=== PATIENT | male | born 1945 | race Caucasian/White ===

== ENCOUNTER 2021-11-01 08:22 | Outpatient (CLI) | payer MEDICARE, BC | END 2021-11-01 08:23 | disposition home or self-care (01) | LOC: SCSRAD 08:22 | PROVIDERS: ATTEND Family Medicine | DX: M53.3 Sacrococcygeal disorders, not elsewhere classified (principal) | CPT/HCPCS: 72220 ==

== ENCOUNTER 2022-06-05 17:17 | Emergency (ER) | payer MEDICARE, BC ==
[~2022-06-05 17:17] MED LIST: Iopamidol-370 76% 500 ML 1 ML ONE
[2022-06-05 17:56] LABS: #Eosinphils 0.5 thou/uL (0.0-0.7); #Lymphocytes 1.4 thou/uL (1.20-3.40); #Monocytes 0.9 thou/uL (0.11-0.59); #Neutrophils 8.1 thou/uL (1.40-6.50); %Basophils 0.3 % (0.0-1.0); %Eosinophils 4.8 % (0.0-10.0); %Lymphocytes 12.9 % (21.0-51.0); %Monocytes 7.9 % (0.0-10.0); Hemoglobin 11.9 g/dL (14.0-18.0); Mean Corpuscular HGB CONC 32.8 g/dL (32.0-36.0); Mean Corpuscular Hemoglobin 31.7 pg (27.0-31.0); Mean Corpuscular Volume 96.6 fL (78.0-98.0); Mean Platelet Volume 10.4 fL (7.4-10.4); Platelet Count 145 thou/uL (130-400); RBC Distribution Width 11.8 % (11.5-14.5); Red Blood Cell (RBC) Count 3.76 mill/uL (4.70-6.10); White Blood Cell (WBC) Count 10.9 thou/uL (4.8-10.8)
[2022-06-05 18:16] LABS: ALT (SGPT) Less than 7 U/L (8-55); AST (SGOT) 19 U/L (5-34); Albumin 3.5 g/dL (3.4-4.8); Alkaline Phosphatase 72 U/L (40-110); Anion Gap 12 mmol/L (10-20); BUN (Urea Nitrogen) 17 mg/dL (8.4-25.7); Bilirubin, Total 0.6 mg/dL (0.2-1.2); Calc. Creatinine Clearance 0 mL/min (70-130); Calcium 9.1 mg/dL (7.8-10.44); Carbon Dioxide 25 mmol/L (23-31); Chloride 105 mmol/L (98-107); Estimated GFR 80; Globulin 2.4 g/dL (2.4-3.5); Glucose 111 mg/dL (83-110); Lipase 45 U/L (8-78); Potassium 3.6 mmol/L (3.5-5.1); Protein, Total 5.9 g/dL (5.8-8.1); Sodium 138 mmol/L (136-145)
[2022-06-05] MEDS ORDERED: Morphine 4 MG/ML VIAL ONE (19:01)
[2022-06-05 21:01] LABS: Troponin I 0.014 ng/mL (< 0.028)
== END 2022-06-05 22:20 ==
LOC: ERS 17:17
DX: M25.512 Pain in left shoulder (principal); I48.91 Unspecified atrial fibrillation; I45.10 Unspecified right bundle-branch block; I11.0 Hypertensive heart disease with heart failure; I50.9 Heart failure, unspecified; E03.9 Hypothyroidism, unspecified; F03.90 Unspecified dementia, unspecified severity, without behavioral disturbance, psychotic disturbance, mood disturbance, and anxiety; G20 Parkinson's disease; W19.XXXA Unspecified fall, initial encounter; Z79.899 Other long term (current) drug therapy
CPT/HCPCS: 36415; 70450; 71045; 71275; 72125; 80053; 83690; 84484; 85025; 93005; 96374; J2270; Q9967

== ENCOUNTER 2022-06-21 09:37 | Emergency (ER) | payer MEDICARE, BC ==
[2022-06-21] MEDS ORDERED: Morphine 4 MG/ML VIAL ONE (10:04)
[2022-06-21 10:10] LABS: #Eosinphils 0.3 thou/uL (0.0-0.7); #Lymphocytes 1.7 thou/uL (1.20-3.40); #Monocytes 1.5 thou/uL (0.11-0.59); %Basophils 0.3 % (0.0-1.0); %Eosinophils 2.9 % (0.0-10.0); %Lymphocytes 14.5 % (21.0-51.0); %Monocytes 12.8 % (0.0-10.0); %Neutrophils 69.6 % (42.0-75.0); Mean Corpuscular HGB CONC 31.8 g/dL (32.0-36.0); Mean Corpuscular Hemoglobin 30.7 pg (27.0-31.0); Mean Corpuscular Volume 96.4 fL (78.0-98.0); Platelet Count 201 thou/uL (130-400); Red Blood Cell (RBC) Count 3.58 mill/uL (4.70-6.10); White Blood Cell (WBC) Count 11.5 thou/uL (4.8-10.8)
[2022-06-21 10:34] LABS: ALT (SGPT) 9 U/L (8-55); AST (SGOT) 17 U/L (5-34); Albumin 3.1 g/dL (3.4-4.8); Alkaline Phosphatase 74 U/L (40-110); Anion Gap 12 mmol/L (10-20); BUN (Urea Nitrogen) 18 mg/dL (8.4-25.7); Bilirubin, Total 0.7 mg/dL (0.2-1.2); Calc. Creatinine Clearance 0 mL/min (70-130); Calcium 8.7 mg/dL (7.8-10.44); Carbon Dioxide 24 mmol/L (23-31); Chloride 104 mmol/L (98-107); Estimated GFR 80; Globulin 2.5 g/dL (2.4-3.5); Glucose 93 mg/dL (83-110); Potassium 3.6 mmol/L (3.5-5.1); Protein, Total 5.6 g/dL (5.8-8.1); Sodium 136 mmol/L (136-145)
== END 2022-06-21 13:09 | disposition home or self-care (01) ==
LOC: ERS 09:37
DX: M25.551 Pain in right hip (principal); I11.0 Hypertensive heart disease with heart failure; I50.9 Heart failure, unspecified; E03.9 Hypothyroidism, unspecified; G20 Parkinson's disease; Z79.899 Other long term (current) drug therapy
CPT/HCPCS: 36415; 70450; 72170; 72192; 80053; 84484; 85025; 96374; J2270

== ENCOUNTER 2022-06-30 22:04 | Inpatient (IN) | payer MEDICARE, BC ==
[2022-06-30 23:12] LABS: Bacteria/HPF 4+ HPF (None Seen); Bilirubin Negative (Negative); Blood, Urine 2+ (Negative); Clarity Extra Turbid (Clear); Glucose, Urine (Dipstick) Normal (Negative); Ketone, Urine Negative (Negative); Leukocyte 500 Leu/uL (Negative); Nitrite 1+ (Negative); Protein, Urine (Dipstick) 100 mg/dL (Neg-Trace); Renal Epithelial 0-3 HPF (None Seen); Specific Gravity, Urine 1.012 (1.002-1.036); Squamous Epithelial 0-3 HPF (0-3); Urobilinogen Normal mg/dL (Less than 2); WBC/HPF Greater than 50 HPF (0-3)
[2022-06-30 23:13] LABS: ALT (SGPT) Less than 7 U/L (8-55); AST (SGOT) 47 U/L (5-34); Alkaline Phosphatase 86 U/L (40-110); Anion Gap 14 mmol/L (10-20); BUN (Urea Nitrogen) 27 mg/dL (8.4-25.7); Bilirubin, Total 0.7 mg/dL (0.2-1.2); CK (CPK) 1153 U/L (30-200); Calc. Creatinine Clearance 0 mL/min (70-130); Calcium 8.4 mg/dL (7.8-10.44); Carbon Dioxide 22 mmol/L (23-31); Chloride 103 mmol/L (98-107); Estimated GFR 43; Globulin 2.7 g/dL (2.4-3.5); Glucose 170 mg/dL (83-110); Hemoglobin 10.6 g/dL (14.0-18.0); Mean Corpuscular HGB CONC 34.5 g/dL (32.0-36.0); Mean Corpuscular Hemoglobin 33.3 pg (27.0-31.0); Mean Corpuscular Volume 96.5 fL (78.0-98.0); Mean Platelet Volume 11.1 fL (7.4-10.4); Platelet Count 134 thou/uL (130-400); Potassium 3.7 mmol/L (3.5-5.1); Protein, Total 5.7 g/dL (5.8-8.1); RBC Distribution Width 12.2 % (11.5-14.5); Sodium 135 mmol/L (136-145); White Blood Cell (WBC) Count 18.7 thou/uL (4.8-10.8)
[2022-06-30 23:24] LABS: Band 16 % (5-11); Lymphocytes 4 % (21-51); MDiff Complete? YES; Monocytes 5 % (0-10); Neutrophil 75 % (42-75)
[2022-06-30 23:36] LABS: CKMB 20.9 ng/mL (0-6.6)
[2022-06-30] MEDS ORDERED: Cefepime 2 GM VIAL ONE (23:53)
[2022-06-30] MEDS ORDERED: Aspirin 300 MG Suppository ONE ×2 (23:53)
[2022-06-30] MEDS ORDERED: Vancomycin 1 GM/200 ML BAG ONE (23:53)
[2022-07-01] MEDS ORDERED: Ondansetron PF 4 MG/2 ML Vial IVP PRN (00:09)
[2022-07-01 00:20] LABS: SARS-CoV-2 NAA Rapid Test DETECTED (NotDetected)
[2022-07-01] MEDS ORDERED: Dexamethasone 10 MG/ML VIAL SLOW IVP SCH (00:45)
[2022-07-01] MEDS ORDERED: Fentanyl 100 MCG/2 ML VIAL ONE (00:45)
[2022-07-01 01:10] LABS: Troponin I 0.035 ng/mL (< 0.028)
[2022-07-01] MEDS: Sodium Chloride 0.9% 1,000 ML IV SCH ×2 (02:22→15:00)
[2022-07-01 02:26] LABS: #Monocytes 0.9 thou/uL (0.11-0.59); #Neutrophils 16.4 thou/uL (1.40-6.50); %Eosinophils 0.1 % (0.0-10.0); %Lymphocytes 5.6 % (21.0-51.0); %Monocytes 4.8 % (0.0-10.0); %Neutrophils 89.5 % (42.0-75.0); Hemoglobin 10.1 g/dL (14.0-18.0); Mean Corpuscular HGB CONC 34.9 g/dL (32.0-36.0); Mean Corpuscular Hemoglobin 33.8 pg (27.0-31.0); Mean Corpuscular Volume 96.8 fL (78.0-98.0); Mean Platelet Volume 10.3 fL (7.4-10.4); Platelet Count 130 thou/uL (130-400); RBC Distribution Width 12.3 % (11.5-14.5); Red Blood Cell (RBC) Count 2.99 mill/uL (4.70-6.10); White Blood Cell (WBC) Count 18.4 thou/uL (4.8-10.8)
[2022-07-01 02:42] LABS: Lactic Acid 0.8 mmol/L (0.5-2.2)
[2022-07-01 02:54] LABS: Anion Gap 15 mmol/L (10-20); BUN (Urea Nitrogen) 28 mg/dL (8.4-25.7); CK (CPK) 950 U/L (30-200); Calc. Creatinine Clearance 0 mL/min (70-130); Calcium 7.7 mg/dL (7.8-10.44); Carbon Dioxide 21 mmol/L (23-31); Chloride 106 mmol/L (98-107); Estimated GFR 47; Glucose 143 mg/dL (83-110); Potassium 3.8 mmol/L (3.5-5.1); Sodium 138 mmol/L (136-145)
[2022-07-01 02:55] LABS: ALT (SGPT) Less than 7 U/L (8-55); AST (SGOT) 45 U/L (5-34); Albumin 2.8 g/dL (3.4-4.8); Alkaline Phosphatase 77 U/L (40-110); Bilirubin, Direct 0.4 mg/dL (0.1-0.3); Bilirubin, Total 0.5 mg/dL (0.2-1.2); Hemoglobin A1c 5.3 % (4.0-6.0); Protein, Total 5.2 g/dL (5.8-8.1)
[2022-07-01 05:18] LABS: Troponin I 0.025 ng/mL (< 0.028)
[2022-07-01] MEDS: Acetaminophen 325 MG TAB PO PRN (06:15)
[2022-07-01] MEDS: Enoxaparin Sodium 40 MG/0.4 ML SYRINGE SC SCH (09:11)
[2022-07-01] MEDS: Dexamethasone 10 MG/ML VIAL SLOW IVP SCH (09:12)
[2022-07-01] MEDS: Zinc Sulfate 220 MG CAP PO SCH (09:12)
[2022-07-01] MEDS: Ascorbic Acid 500 mg Chewable Tablet PO SCH (09:12)
[2022-07-01] MEDS: Cefepime 2 GM in Sodium Chloride 0.9% 100 ML IVPB SCH (11:40)
[2022-07-01] MEDS: Carbidopa/Levodopa [Rytary Er] 61.25 MG/245 MG Capsule.Er PO SCH ×2 (18:09→21:41)
[2022-07-01] MEDS: Atorvastatin Calcium 20 MG TAB PO SCH (21:41)
[2022-07-01] MEDS: traZODone HCl 50 MG TAB PO SCH (21:41)
[2022-07-02] MEDS: Cefepime 2 GM in Sodium Chloride 0.9% 100 ML IVPB SCH ×2 (00:07→12:35)
[2022-07-02] MEDS ORDERED: VANCOMYCIN 1.25 GM/250 ML BAG 1.25 GM in Premix Bag 1 BAG IVPB SCH (01:00)
[2022-07-02] MEDS: Acetaminophen 325 MG TAB PO PRN ×2 (03:41→09:37)
[2022-07-02 04:45] LABS: #Lymphocytes 0.5 thou/uL (1.20-3.40); #Monocytes 0.4 thou/uL (0.11-0.59); #Neutrophils 15.2 thou/uL (1.40-6.50); %Lymphocytes 3.3 % (21.0-51.0); %Monocytes 2.4 % (0.0-10.0); %Neutrophils 94.3 % (42.0-75.0); Hemoglobin 9.5 g/dL (14.0-18.0); Mean Corpuscular HGB CONC 31.5 g/dL (32.0-36.0); Mean Corpuscular Hemoglobin 30.8 pg (27.0-31.0); Mean Corpuscular Volume 97.8 fL (78.0-98.0); Mean Platelet Volume 11.3 fL (7.4-10.4); Platelet Count 124 thou/uL (130-400); RBC Distribution Width 12.1 % (11.5-14.5); Red Blood Cell (RBC) Count 3.08 mill/uL (4.70-6.10); White Blood Cell (WBC) Count 16.1 thou/uL (4.8-10.8)
[2022-07-02 05:02] LABS: Anion Gap 11 mmol/L (10-20); BUN (Urea Nitrogen) 29 mg/dL (8.4-25.7); CK (CPK) 292 U/L (30-200); Calc. Creatinine Clearance 64 mL/min (70-130); Carbon Dioxide 24 mmol/L (23-31); Chloride 107 mmol/L (98-107); Estimated GFR 72; Glucose 135 mg/dL (83-110); Potassium 3.9 mmol/L (3.5-5.1); Sodium 138 mmol/L (136-145)
[2022-07-02] MEDS: Levothyroxine Sodium 25 MCG TAB PO SCH (06:09)
[2022-07-02 09:00] VITALS: BMI 25.1
[2022-07-02] MEDS: Citalopram 20 MG TAB PO SCH (09:40)
[2022-07-02] MEDS: Dexamethasone 10 MG/ML VIAL SLOW IVP SCH (09:40)
[2022-07-02] MEDS: Zinc Sulfate 220 MG CAP PO SCH (09:40)
[2022-07-02] MEDS: Ascorbic Acid 500 mg Chewable Tablet PO SCH (09:40)
[2022-07-02] MEDS: Enoxaparin Sodium 40 MG/0.4 ML SYRINGE SC SCH (09:41)
[2022-07-02] MEDS: Carbidopa/Levodopa [Rytary Er] 61.25 MG/245 MG Capsule.Er PO SCH ×3 (13:04→20:41)
[2022-07-02] MEDS: Sodium Chloride 0.9% 1,000 ML IV SCH (13:24)
[2022-07-02] MEDS ORDERED: Morphine 2 MG/ML VIAL SLOW IVP PRN (15:03)
[2022-07-02] MEDS ORDERED: Ibuprofen 200 MG TAB PO PRN (15:04)
[2022-07-02] MEDS: Atorvastatin Calcium 20 MG TAB PO SCH (20:40)
[2022-07-02] MEDS: traZODone HCl 50 MG TAB PO SCH (20:40)
[2022-07-02] MEDS: Ciprofloxacin 500 MG TAB PO SCH (20:41)
[2022-07-03 04:48] LABS: #Lymphocytes 0.6 thou/uL (1.20-3.40); #Monocytes 0.6 thou/uL (0.11-0.59); #Neutrophils 12.7 thou/uL (1.40-6.50); %Eosinophils 0.1 % (0.0-10.0); %Lymphocytes 4.6 % (21.0-51.0); %Monocytes 4.1 % (0.0-10.0); %Neutrophils 91.1 % (42.0-75.0); Mean Corpuscular HGB CONC 32.6 g/dL (32.0-36.0); Mean Corpuscular Hemoglobin 31.7 pg (27.0-31.0); Mean Corpuscular Volume 97.2 fL (78.0-98.0); Mean Platelet Volume 10.9 fL (7.4-10.4); Platelet Count 151 thou/uL (130-400); RBC Distribution Width 12.2 % (11.5-14.5); Red Blood Cell (RBC) Count 3.14 mill/uL (4.70-6.10); White Blood Cell (WBC) Count 13.9 thou/uL (4.8-10.8)
[2022-07-03 05:04] LABS: Anion Gap 14 mmol/L (10-20); BUN (Urea Nitrogen) 30 mg/dL (8.4-25.7); Calc. Creatinine Clearance 70 mL/min (70-130); Calcium 7.9 mg/dL (7.8-10.44); Carbon Dioxide 21 mmol/L (23-31); Chloride 105 mmol/L (98-107); Estimated GFR 80; Glucose 122 mg/dL (83-110); Sodium 136 mmol/L (136-145)
[2022-07-03] MEDS: Levothyroxine Sodium 25 MCG TAB PO SCH (05:13)
[2022-07-03] MEDS: Ciprofloxacin 500 MG TAB PO SCH (05:13)
[2022-07-03] MEDS: Citalopram 20 MG TAB PO SCH (09:41)
[2022-07-03] MEDS: Carbidopa/Levodopa [Rytary Er] 61.25 MG/245 MG Capsule.Er PO SCH ×2 (09:41→15:07)
[2022-07-03] MEDS: Zinc Sulfate 220 MG CAP PO SCH (09:41)
[2022-07-03] MEDS: Enoxaparin Sodium 40 MG/0.4 ML SYRINGE SC SCH (09:41)
[2022-07-03] MEDS: Ascorbic Acid 500 mg Chewable Tablet PO SCH (09:41)
[2022-07-03 12:20] VITALS: TEMP 98.1
[2022-07-03 17:03] VITALS: BP 177/84
== END 2022-07-03 16:45 | DRG 871 ==
LOC: ERS 22:04 → 2NO 07-01 00:08
PROVIDERS: ADMIT Internal Medicine; ATTEND Internal Medicine
PROC: 3E03329 Introduction of Other Anti-infective into Peripheral Vein, Percutaneous Approach (ICD-10-PCS; principal; 2022-07-01)
PROC: 8E0ZXY6 Isolation (ICD-10-PCS; 2022-07-01)
DX: A41.51 Sepsis due to Escherichia coli [E. coli] (principal); U07.1 COVID-19; J96.01 Acute respiratory failure with hypoxia; G93.41 Metabolic encephalopathy; I50.32 Chronic diastolic (congestive) heart failure; M62.82 Rhabdomyolysis; N17.9 Acute kidney failure, unspecified; I24.8 Other forms of acute ischemic heart disease; N30.00 Acute cystitis without hematuria; F03.91 Unspecified dementia, unspecified severity, with behavioral disturbance; Z66 Do not resuscitate; A41.89 Other specified sepsis; I11.0 Hypertensive heart disease with heart failure; E03.9 Hypothyroidism, unspecified; D64.9 Anemia, unspecified; G20 Parkinson's disease; R29.6 Repeated falls; F32.A Depression, unspecified; E78.2 Mixed hyperlipidemia; F41.9 Anxiety disorder, unspecified; R63.0 Anorexia; Z98.890 Other specified postprocedural states; Z88.1 Allergy status to other antibiotic agents; Z88.5 Allergy status to narcotic agent; Z79.51 Long term (current) use of inhaled steroids; Z79.899 Other long term (current) drug therapy; Z79.890 Hormone replacement therapy; Z68.25 Body mass index [BMI] 25.0-25.9, adult; Z99.3 Dependence on wheelchair
CPT/HCPCS: 36415; 51701; 70450; 71045; 74176; 80048; 80053; 80076; 81003; 81015; 82550; 82553; 83036; 83605; 83880; 84484; 85025; 86140; 87040; 87077; 87086; 87186; 93005; 96374; 96375; J0692; J1100; J1650; J3010; J3370; J3490; J7050

== ENCOUNTER 2022-07-04 10:34 | Emergency (ER) | payer MEDICARE, BC ==
[2022-07-04] MEDS ORDERED: Bacitracin 1 PK ONE (11:29)
[2022-07-04 11:30] LABS: #Eosinphils 0.1 thou/uL (0.0-0.7); #Lymphocytes 0.8 thou/uL (1.20-3.40); #Monocytes 0.9 thou/uL (0.11-0.59); #Neutrophils 9.6 thou/uL (1.40-6.50); %Basophils 0.2 % (0.0-1.0); %Eosinophils 0.7 % (0.0-10.0); %Lymphocytes 7.2 % (21.0-51.0); %Monocytes 7.9 % (0.0-10.0); Hemoglobin 10.2 g/dL (14.0-18.0); Mean Corpuscular HGB CONC 32.9 g/dL (32.0-36.0); Mean Corpuscular Hemoglobin 31.3 pg (27.0-31.0); Mean Corpuscular Volume 95.2 fL (78.0-98.0); Mean Platelet Volume 10.9 fL (7.4-10.4); Platelet Count 147 thou/uL (130-400); Red Blood Cell (RBC) Count 3.25 mill/uL (4.70-6.10); White Blood Cell (WBC) Count 11.4 thou/uL (4.8-10.8)
[2022-07-04 12:17] LABS: ALT (SGPT) 14 U/L (8-55); AST (SGOT) 39 U/L (5-34); Albumin 2.9 g/dL (3.4-4.8); Alkaline Phosphatase 79 U/L (40-110); Anion Gap 11 mmol/L (10-20); BUN (Urea Nitrogen) 26 mg/dL (8.4-25.7); Bilirubin, Total 0.6 mg/dL (0.2-1.2); CK (CPK) 102 U/L (30-200); Calc. Creatinine Clearance 0 mL/min (70-130); Calcium 8.4 mg/dL (7.8-10.44); Carbon Dioxide 25 mmol/L (23-31); Chloride 101 mmol/L (98-107); Estimated GFR 65; Globulin 2.5 g/dL (2.4-3.5); Glucose 88 mg/dL (83-110); Magnesium 1.6 mg/dL (1.6-2.6); Potassium 3.7 mmol/L (3.5-5.1); Protein, Total 5.4 g/dL (5.8-8.1); Sodium 133 mmol/L (136-145)
== END 2022-07-04 14:25 | disposition home or self-care (01) ==
LOC: ERS 10:34
DX: G20 Parkinson's disease (principal); F02.80 Dementia in other diseases classified elsewhere, unspecified severity, without behavioral disturbance, psychotic disturbance, mood disturbance, and anxiety; I11.0 Hypertensive heart disease with heart failure; I50.9 Heart failure, unspecified; E03.9 Hypothyroidism, unspecified; Z79.899 Other long term (current) drug therapy
CPT/HCPCS: 36415; 71045; 80053; 82550; 83735; 84443; 84484; 85025; 93005; 93010

== ENCOUNTER 2022-08-17 19:25 | Inpatient (IN) | payer MEDICARE, BC ==
[2022-08-17 20:30] LABS: Bacteria/HPF 4+ HPF (None Seen); Bilirubin Negative (Negative); Blood, Urine 1+ (Negative); Clarity Extra Turbid (Clear); Glucose, Urine (Dipstick) Normal (Negative); Ketone, Urine Negative (Negative); Leukocyte 500 Leu/uL (Negative); Nitrite Negative (Negative); Protein, Urine (Dipstick) 70 mg/dL (Neg-Trace); Specific Gravity, Urine 1.014 (1.002-1.036); Squamous Epithelial None Seen HPF (0-3); Urobilinogen 6 mg/dL (Less than 2); WBC/HPF Greater than 50 HPF (0-3)
[2022-08-17 20:46] LABS: #Eosinphils 0.1 thou/uL (0.0-0.7); #Lymphocytes 1.8 thou/uL (1.20-3.40); #Monocytes 1.2 thou/uL (0.11-0.59); #Neutrophils 12.3 thou/uL (1.40-6.50); %Basophils 0.2 % (0.0-1.0); %Eosinophils 0.6 % (0.0-10.0); %Lymphocytes 11.6 % (21.0-51.0); %Neutrophils 79.7 % (42.0-75.0); Hemoglobin 9.2 g/dL (14.0-18.0); Mean Corpuscular HGB CONC 33.1 g/dL (32.0-36.0); Mean Corpuscular Hemoglobin 30.3 pg (27.0-31.0); Mean Corpuscular Volume 91.7 fL (78.0-98.0); Mean Platelet Volume 11.1 fL (7.4-10.4); Platelet Count 190 thou/uL (130-400); RBC Distribution Width 14.3 % (11.5-14.5); Red Blood Cell (RBC) Count 3.02 mill/uL (4.70-6.10); White Blood Cell (WBC) Count 15.5 thou/uL (4.8-10.8)
[2022-08-17 21:04] LABS: ALT (SGPT) Less than 7 U/L (8-55); AST (SGOT) 16 U/L (5-34); Alkaline Phosphatase 61 U/L (40-110); Anion Gap 15 mmol/L (10-20); BUN (Urea Nitrogen) 21 mg/dL (8.4-25.7); Bilirubin, Total 0.8 mg/dL (0.2-1.2); Calc. Creatinine Clearance 0 mL/min (70-130); Calcium 8.3 mg/dL (7.8-10.44); Carbon Dioxide 18 mmol/L (23-31); Chloride 102 mmol/L (98-107); Estimated GFR 63; Globulin 2.5 g/dL (2.4-3.5); Glucose 97 mg/dL (83-110); Lipase Less than 4 U/L (8-78); Magnesium 1.3 mg/dL (1.6-2.6); Potassium 3.7 mmol/L (3.5-5.1); Protein, Total 5.5 g/dL (5.8-8.1); Sodium 131 mmol/L (136-145)
[2022-08-17] MEDS ORDERED: cefTRIAXone\\ROCEPHIN 1 GM VIAL ONE (21:04)
[2022-08-17] MEDS ORDERED: Magnesium 2 GM/50 ML BAG (IN WATER) ONE (22:31)
[2022-08-18 00:47] LABS: SARS-CoV-2 NAA Rapid Test Not Detected (NotDetected)
[2022-08-18] MEDS ORDERED: Ondansetron PF 4 MG/2 ML Vial IVP PRN (05:16)
[2022-08-18] MEDS ORDERED: Acetaminophen 325 MG TAB PO PRN (05:16)
[2022-08-18 07:14] LABS: #Eosinphils 0.1 thou/uL (0.0-0.7); #Lymphocytes 1.8 thou/uL (1.20-3.40); #Monocytes 0.9 thou/uL (0.11-0.59); #Neutrophils 9.8 thou/uL (1.40-6.50); %Basophils 0.3 % (0.0-1.0); %Lymphocytes 14.1 % (21.0-51.0); %Neutrophils 77.6 % (42.0-75.0); Hemoglobin 8.6 g/dL (14.0-18.0); Mean Corpuscular HGB CONC 33.2 g/dL (32.0-36.0); Mean Corpuscular Volume 93.3 fL (78.0-98.0); Mean Platelet Volume 10.3 fL (7.4-10.4); Platelet Count 181 thou/uL (130-400); RBC Distribution Width 14.4 % (11.5-14.5); Red Blood Cell (RBC) Count 2.76 mill/uL (4.70-6.10); White Blood Cell (WBC) Count 12.6 thou/uL (4.8-10.8)
[2022-08-18 07:32] LABS: Anion Gap 11 mmol/L (10-20); BUN (Urea Nitrogen) 16 mg/dL (8.4-25.7); Calc. Creatinine Clearance 0 mL/min (70-130); Carbon Dioxide 20 mmol/L (23-31); Chloride 105 mmol/L (98-107); Estimated GFR 88; Glucose 79 mg/dL (83-110); Magnesium 1.8 mg/dL (1.6-2.6); Potassium 3.3 mmol/L (3.5-5.1); Sodium 133 mmol/L (136-145)
[2022-08-18] MEDS ORDERED: Citalopram 20 MG TAB PO SCH (10:15)
[2022-08-18] MEDS ORDERED: Potassium Chloride 20 MEQ TAB PO SCH (10:15)
[2022-08-18] MEDS ORDERED: Divalproex Sodium 125 mg Sprinkle Capsule PO SCH (10:30)
[2022-08-18] MEDS ORDERED: Carbidopa/Levodopa CR 50-200 mg Tablet PO SCH (10:30)
[2022-08-18 11:38] VITALS: BMI 24.3
[2022-08-18] MEDS: Carbidopa/Levodopa CR 50-200 mg Tablet PO SCH ×2 (18:26→22:47)
[2022-08-18] MEDS: Nystatin Cream 30 GM TUBE TOP SCH (18:27)
[2022-08-18] MEDS ORDERED: cefTRIAXone\\ROCEPHIN 1 GM in Sodium Chloride 0.9% 100 ML IVPB SCH (21:00)
[2022-08-18] MEDS: Atorvastatin Calcium 20 MG TAB PO SCH (22:47)
[2022-08-18] MEDS: D5 0.9% NS w/ 20 mEq KCl 1,000 ML IV SCH (22:47)
[2022-08-18] MEDS: Megestrol Acetate 800 MG/20 ML UDCUP PO SCH (22:47)
[2022-08-18] MEDS: traZODone HCl 50 MG TAB PO SCH (22:47)
[2022-08-18] MEDS: Divalproex Sodium 125 mg Sprinkle Capsule PO SCH (22:47)
[2022-08-19 04:31] LABS: #Eosinphils 0.1 thou/uL (0.0-0.7); #Lymphocytes 1.7 thou/uL (1.20-3.40); #Monocytes 0.8 thou/uL (0.11-0.59); #Neutrophils 7.5 thou/uL (1.40-6.50); %Basophils 0.2 % (0.0-1.0); %Eosinophils 0.9 % (0.0-10.0); %Lymphocytes 16.9 % (21.0-51.0); %Monocytes 8.2 % (0.0-10.0); %Neutrophils 73.8 % (42.0-75.0); Hemoglobin 8.2 g/dL (14.0-18.0); Mean Corpuscular HGB CONC 31.8 g/dL (32.0-36.0); Mean Corpuscular Hemoglobin 30.2 pg (27.0-31.0); Platelet Count 162 thou/uL (130-400); RBC Distribution Width 14.4 % (11.5-14.5); Red Blood Cell (RBC) Count 2.72 mill/uL (4.70-6.10); White Blood Cell (WBC) Count 10.2 thou/uL (4.8-10.8)
[2022-08-19 04:52] LABS: Anion Gap 10 mmol/L (10-20); BUN (Urea Nitrogen) 16 mg/dL (8.4-25.7); Calc. Creatinine Clearance 76 mL/min (70-130); Calcium 7.8 mg/dL (7.8-10.44); Carbon Dioxide 21 mmol/L (23-31); Chloride 107 mmol/L (98-107); Estimated GFR 90; Glucose 103 mg/dL (83-110); Iron 22 ug/dL (65-175); Iron Binding Capacity, Total 131 mcg/dL (261-462); Magnesium 1.7 mg/dL (1.6-2.6); Potassium 3.8 mmol/L (3.5-5.1); Sodium 134 mmol/L (136-145)
[2022-08-19 06:02] LABS: Ferritin 450.29 ng/mL (22-322)
[2022-08-19] MEDS: Levothyroxine Sodium 25 MCG TAB PO SCH (06:31)
[2022-08-19] MEDS: Divalproex Sodium 125 mg Sprinkle Capsule PO SCH ×2 (08:40→22:04)
[2022-08-19] MEDS: Citalopram 20 MG TAB PO SCH (08:42)
[2022-08-19] MEDS: Carbidopa/Levodopa CR 50-200 mg Tablet PO SCH ×3 (08:45→22:03)
[2022-08-19] MEDS: Megestrol Acetate 800 MG/20 ML UDCUP PO SCH ×2 (08:49→22:04)
[2022-08-19] MEDS: D5 0.9% NS w/ 20 mEq KCl 1,000 ML IV SCH (11:29)
[2022-08-19] MEDS: Nystatin Cream 30 GM TUBE TOP SCH ×2 (11:29→22:19)
[2022-08-19] MEDS ORDERED: Lidocaine 1% (PF) 30 ML VIAL ONE (12:11)
[2022-08-19] MEDS ORDERED: EPINEPHrine 1 MG/ML AMP ONE (12:11)
[2022-08-19] MEDS ORDERED: Meropenem 1 GM in Sodium Chloride 0.9% 100 ML IVPB SCH (12:30)
[2022-08-19] MEDS ORDERED: Meropenem 500 MG in Sodium Chloride 0.9% 100 ML IVPB SCH (14:00)
[2022-08-19] MEDS: traZODone HCl 50 MG TAB PO SCH (22:04)
[2022-08-19] MEDS: Atorvastatin Calcium 20 MG TAB PO SCH (22:04)
[2022-08-19] MEDS: Meropenem 1 GM in Sodium Chloride 0.9% 100 ML IVPB SCH (22:05)
[2022-08-20] MEDS: D5 0.9% NS w/ 20 mEq KCl 1,000 ML IV SCH (01:26)
[2022-08-20 05:04] LABS: #Eosinphils 0.2 thou/uL (0.0-0.7); #Lymphocytes 1.9 thou/uL (1.20-3.40); #Monocytes 0.8 thou/uL (0.11-0.59); #Neutrophils 8.1 thou/uL (1.40-6.50); %Basophils 0.1 % (0.0-1.0); %Lymphocytes 17.1 % (21.0-51.0); %Monocytes 7.2 % (0.0-10.0); %Neutrophils 73.7 % (42.0-75.0); Hemoglobin 9.3 g/dL (14.0-18.0); Mean Corpuscular HGB CONC 31.9 g/dL (32.0-36.0); Mean Corpuscular Hemoglobin 30.3 pg (27.0-31.0); Mean Platelet Volume 11.6 fL (7.4-10.4); Platelet Count 183 thou/uL (130-400); RBC Distribution Width 14.6 % (11.5-14.5); Red Blood Cell (RBC) Count 3.08 mill/uL (4.70-6.10)
[2022-08-20 05:29] LABS: Anion Gap 11 mmol/L (10-20); BUN (Urea Nitrogen) 13 mg/dL (8.4-25.7); Calc. Creatinine Clearance 81 mL/min (70-130); Calcium 8.7 mg/dL (7.8-10.44); Carbon Dioxide 23 mmol/L (23-31); Chloride 105 mmol/L (98-107); Estimated GFR 91; Glucose 89 mg/dL (83-110); Magnesium 1.7 mg/dL (1.6-2.6); Potassium 4.6 mmol/L (3.5-5.1); Sodium 134 mmol/L (136-145)
[2022-08-20] MEDS: Levothyroxine Sodium 25 MCG TAB PO SCH (06:02)
[2022-08-20] MEDS: Meropenem 1 GM in Sodium Chloride 0.9% 100 ML IVPB SCH ×3 (06:02→21:11)
[2022-08-20] MEDS: Citalopram 20 MG TAB PO SCH (08:50)
[2022-08-20] MEDS: Carbidopa/Levodopa CR 50-200 mg Tablet PO SCH ×3 (08:50→21:11)
[2022-08-20] MEDS: Megestrol Acetate 800 MG/20 ML UDCUP PO SCH ×2 (08:50→21:12)
[2022-08-20] MEDS: Divalproex Sodium 125 mg Sprinkle Capsule PO SCH ×2 (08:50→21:11)
[2022-08-20] MEDS: Nystatin Cream 30 GM TUBE TOP SCH ×2 (08:51→21:12)
[2022-08-20] MEDS: traZODone HCl 50 MG TAB PO SCH (21:11)
[2022-08-20] MEDS: Atorvastatin Calcium 20 MG TAB PO SCH (21:11)
[2022-08-21 05:01] LABS: #Eosinphils 0.2 thou/uL (0.0-0.7); #Lymphocytes 1.6 thou/uL (1.20-3.40); #Monocytes 0.8 thou/uL (0.11-0.59); %Basophils 0.3 % (0.0-1.0); %Eosinophils 2.1 % (0.0-10.0); %Lymphocytes 16.9 % (21.0-51.0); %Monocytes 7.8 % (0.0-10.0); %Neutrophils 72.9 % (42.0-75.0); Hemoglobin 8.2 g/dL (14.0-18.0); Mean Corpuscular HGB CONC 33.3 g/dL (32.0-36.0); Mean Corpuscular Hemoglobin 31.3 pg (27.0-31.0); Mean Corpuscular Volume 93.9 fL (78.0-98.0); Mean Platelet Volume 10.5 fL (7.4-10.4); Platelet Count 204 thou/uL (130-400); RBC Distribution Width 14.9 % (11.5-14.5); Red Blood Cell (RBC) Count 2.61 mill/uL (4.70-6.10); White Blood Cell (WBC) Count 9.7 thou/uL (4.8-10.8)
[2022-08-21 05:20] LABS: Anion Gap 11 mmol/L (10-20); BUN (Urea Nitrogen) 15 mg/dL (8.4-25.7); Calc. Creatinine Clearance 78 mL/min (70-130); Calcium 8.7 mg/dL (7.8-10.44); Carbon Dioxide 23 mmol/L (23-31); Chloride 102 mmol/L (98-107); Estimated GFR 90; Glucose 88 mg/dL (83-110); Magnesium 1.6 mg/dL (1.6-2.6); Potassium 4.4 mmol/L (3.5-5.1); Sodium 132 mmol/L (136-145)
[2022-08-21] MEDS: Levothyroxine Sodium 25 MCG TAB PO SCH (05:52)
[2022-08-21] MEDS: Meropenem 1 GM in Sodium Chloride 0.9% 100 ML IVPB SCH ×3 (05:52→20:06)
[2022-08-21] MEDS: Divalproex Sodium 125 mg Sprinkle Capsule PO SCH ×2 (09:14→20:06)
[2022-08-21] MEDS: Megestrol Acetate 800 MG/20 ML UDCUP PO SCH ×2 (09:14→20:06)
[2022-08-21] MEDS: Citalopram 20 MG TAB PO SCH (09:15)
[2022-08-21] MEDS: Nystatin Cream 30 GM TUBE TOP SCH ×2 (09:15→20:08)
[2022-08-21] MEDS: Carbidopa/Levodopa CR 50-200 mg Tablet PO SCH ×3 (09:15→20:06)
[2022-08-21] MEDS: traZODone HCl 50 MG TAB PO SCH (20:05)
[2022-08-21] MEDS: Atorvastatin Calcium 20 MG TAB PO SCH (20:06)
[2022-08-22 04:36] LABS: #Eosinphils 0.3 thou/uL (0.0-0.7); #Monocytes 0.9 thou/uL (0.11-0.59); #Neutrophils 6.6 thou/uL (1.40-6.50); %Basophils 0.3 % (0.0-1.0); %Eosinophils 2.6 % (0.0-10.0); %Lymphocytes 20.8 % (21.0-51.0); %Monocytes 8.8 % (0.0-10.0); %Neutrophils 67.5 % (42.0-75.0); Hemoglobin 8.6 g/dL (14.0-18.0); Mean Corpuscular HGB CONC 32.7 g/dL (32.0-36.0); Mean Corpuscular Hemoglobin 30.4 pg (27.0-31.0); Mean Corpuscular Volume 92.7 fL (78.0-98.0); Mean Platelet Volume 10.3 fL (7.4-10.4); Platelet Count 227 thou/uL (130-400); RBC Distribution Width 14.8 % (11.5-14.5); Red Blood Cell (RBC) Count 2.82 mill/uL (4.70-6.10); White Blood Cell (WBC) Count 9.8 thou/uL (4.8-10.8)
[2022-08-22 05:04] LABS: Anion Gap 10 mmol/L (10-20); BUN (Urea Nitrogen) 21 mg/dL (8.4-25.7); Calc. Creatinine Clearance 73 mL/min (70-130); Calcium 8.8 mg/dL (7.8-10.44); Carbon Dioxide 23 mmol/L (23-31); Chloride 100 mmol/L (98-107); Estimated GFR 89; Glucose 98 mg/dL (83-110); Potassium 4.2 mmol/L (3.5-5.1); Sodium 129 mmol/L (136-145)
[2022-08-22] MEDS: Meropenem 1 GM in Sodium Chloride 0.9% 100 ML IVPB SCH ×3 (05:24→21:14)
[2022-08-22] MEDS: Levothyroxine Sodium 25 MCG TAB PO SCH (05:27)
[2022-08-22] MEDS: Megestrol Acetate 800 MG/20 ML UDCUP PO SCH ×2 (09:04→21:15)
[2022-08-22] MEDS: Citalopram 20 MG TAB PO SCH (09:04)
[2022-08-22] MEDS: Divalproex Sodium 125 mg Sprinkle Capsule PO SCH ×2 (09:05→21:14)
[2022-08-22] MEDS: Carbidopa/Levodopa CR 50-200 mg Tablet PO SCH ×3 (09:05→21:14)
[2022-08-22] MEDS: Nystatin Cream 30 GM TUBE TOP SCH ×2 (09:05→21:21)
[2022-08-22] MEDS: Atorvastatin Calcium 20 MG TAB PO SCH (21:14)
[2022-08-22] MEDS: traZODone HCl 50 MG TAB PO SCH (21:14)
[2022-08-23] MEDS: Meropenem 1 GM in Sodium Chloride 0.9% 100 ML IVPB SCH ×3 (05:23→20:52)
[2022-08-23] MEDS: Levothyroxine Sodium 25 MCG TAB PO SCH (05:24)
[2022-08-23] MEDS: Carbidopa/Levodopa CR 50-200 mg Tablet PO SCH ×3 (08:27→20:51)
[2022-08-23] MEDS: Divalproex Sodium 125 mg Sprinkle Capsule PO SCH ×2 (08:28→20:52)
[2022-08-23] MEDS: Citalopram 20 MG TAB PO SCH (08:29)
[2022-08-23] MEDS: Megestrol Acetate 800 MG/20 ML UDCUP PO SCH ×2 (08:30→20:52)
[2022-08-23] MEDS: Nystatin Cream 30 GM TUBE TOP SCH ×2 (08:31→20:51)
[2022-08-23] MEDS: Atorvastatin Calcium 20 MG TAB PO SCH (20:51)
[2022-08-23] MEDS: traZODone HCl 50 MG TAB PO SCH (20:51)
[2022-08-24] MEDS: Meropenem 1 GM in Sodium Chloride 0.9% 100 ML IVPB SCH ×2 (05:53→13:04)
[2022-08-24] MEDS: Levothyroxine Sodium 25 MCG TAB PO SCH (05:53)
[2022-08-24] MEDS: Citalopram 20 MG TAB PO SCH (09:01)
[2022-08-24] MEDS: Carbidopa/Levodopa CR 50-200 mg Tablet PO SCH (09:03)
[2022-08-24] MEDS: Divalproex Sodium 125 mg Sprinkle Capsule PO SCH (09:03)
[2022-08-24] MEDS: Megestrol Acetate 800 MG/20 ML UDCUP PO SCH (09:04)
[2022-08-24] MEDS: Nystatin Cream 30 GM TUBE TOP SCH (09:08)
[2022-08-24 12:52] VITALS: BP 117/68; TEMP 98.6
== END 2022-08-24 14:27 | disposition home or self-care (01) | DRG 690 ==
LOC: ERS 19:25 → ERHOLD 22:25 → 2NO 08-18 06:42 → OBSVTOIN 08-19 12:13
PROVIDERS: ADMIT Hospitalist; ATTEND Hospitalist
DX: N30.00 Acute cystitis without hematuria (principal); Z66 Do not resuscitate; Z20.822 Contact with and (suspected) exposure to COVID-19; E87.1 Hypo-osmolality and hyponatremia; I50.32 Chronic diastolic (congestive) heart failure; F02.81 Dementia in other diseases classified elsewhere, unspecified severity, with behavioral disturbance; Z16.24 Resistance to multiple antibiotics; I47.2 Ventricular tachycardia; R00.1 Bradycardia, unspecified; I48.0 Paroxysmal atrial fibrillation; E03.9 Hypothyroidism, unspecified; G20 Parkinson's disease; R29.6 Repeated falls; F41.9 Anxiety disorder, unspecified; F32.A Depression, unspecified; I45.10 Unspecified right bundle-branch block; E87.6 Hypokalemia; L53.8 Other specified erythematous conditions; I11.0 Hypertensive heart disease with heart failure; R55 Syncope and collapse; B96.20 Unspecified Escherichia coli [E. coli] as the cause of diseases classified elsewhere; Z91.81 History of falling; Z87.440 Personal history of urinary (tract) infections; Z86.16 Personal history of COVID-19; Z88.1 Allergy status to other antibiotic agents; Z79.899 Other long term (current) drug therapy; Z79.890 Hormone replacement therapy; Z98.890 Other specified postprocedural states; Z87.891 Personal history of nicotine dependence
CPT/HCPCS: 36415; 51701; 70450; 71045; 71275; 80048; 80053; 81003; 81015; 82274; 82607; 82728; 83540; 83550; 83605; 83690; 83735; 83880; 84443; 84484; 85025; 87040; 87077; 87086; 87186; 93005; 93306; 96361; 96365; 96367; J0171; J0696; J2001; J2185; J3475; J3480; J3490; Q9967